=== PATIENT | male | born 1965 | race Two or more races ===

== ENCOUNTER 2021-10-21 19:59 | Emergency (ER) | payer OTHER | END 2021-10-21 22:40 | disposition home or self-care (01) | LOC: JD.ED 19:59 | DX: S16.1XXA Strain of muscle, fascia and tendon at neck level, initial encounter (principal); S50.01XA Contusion of right elbow, initial encounter; S60.511A Abrasion of right hand, initial encounter; V49.40XA Driver injured in collision with unspecified motor vehicles in traffic accident, initial encounter; Y92.410 Unspecified street and highway as the place of occurrence of the external cause | CPT/HCPCS: 72125; 72125-26; 73030-26-RT; 73030-RT; 73090-26-RT; 73090-RT; 99283; 99284-25 ==